=== PATIENT | female | born 1935 | race Caucasian/White ===

== ENCOUNTER 2020-11-30 09:29 | Day surgery (SDC) | payer MEDICARE ==
[2020-11-29 08:54] VITALS: BMI 16.7
[2020-11-30] MEDS ORDERED: Bupivacaine 0.25% HCL 30 ML VIAL ONE (12:06)
[2020-11-30] MEDS ORDERED: Bupivacaine PF 0.5% 30 ML VIAL ONE (12:06)
[2020-11-30] MEDS ORDERED: EPINEPHrine 1 MG/ML AMP ONE (12:06)
[2020-11-30] MEDS ORDERED: Fentanyl 100 MCG/2 ML VIAL ONE (12:14)
[2020-11-30] MEDS ORDERED: Ondansetron PF 4 MG/2 ML Vial ONE (12:24)
[2020-11-30] MEDS ORDERED: Dexamethasone 20 MG/5 ML VIAL ONE (12:24)
[2020-11-30] MEDS ORDERED: Lidocaine 1% PF 5 ML VIAL ONE (12:24)
[2020-11-30] MEDS ORDERED: PROPOFOL 200 MG/20 ML VIAL ONE (12:24)
[2020-11-30] MEDS ORDERED: ePHEDrine Sulfate 50 MG/10 ML VIAL ONE (12:24)
== END 2020-11-30 14:57 | disposition home or self-care (01) ==
LOC: SDC 09:29
PROVIDERS: ATTEND Surgery
PROC: 0YU50JZ Supplement Right Inguinal Region with Synthetic Substitute, Open Approach (ICD-10-PCS; principal; 2020-11-30)
DX: K40.90 Unilateral inguinal hernia, without obstruction or gangrene, not specified as recurrent (principal); I10 Essential (primary) hypertension; E78.5 Hyperlipidemia, unspecified; E03.9 Hypothyroidism, unspecified; J45.909 Unspecified asthma, uncomplicated; Z79.899 Other long term (current) drug therapy; Z87.891 Personal history of nicotine dependence
CPT/HCPCS: A4306; C1781; J0171; J0690; J1100; J2405; J2704; J3010; S0020

== ENCOUNTER 2022-05-02 11:44 | Inpatient (IN) | payer OTHER, MEDICARE ==
[2022-05-02] MEDS ORDERED: Morphine 4 MG/ML VIAL ONE (14:01)
[2022-05-02] MEDS ORDERED: Ondansetron PF 4 MG/2 ML Vial ONE (14:02)
[2022-05-02 14:31] LABS: #Eosinphils 0.1 thou/uL (0.0-0.7); #Lymphocytes 0.6 thou/uL (1.20-3.40); #Monocytes 0.4 thou/uL (0.11-0.59); #Neutrophils 7.6 thou/uL (1.40-6.50); %Basophils 0.3 % (0.0-1.0); %Eosinophils 0.8 % (0.0-10.0); %Lymphocytes 6.9 % (21.0-51.0); %Monocytes 4.9 % (0.0-10.0); %Neutrophils 87.2 % (42.0-75.0); Hemoglobin 14.2 g/dL (12.0-16.0); Mean Corpuscular Hemoglobin 31.3 pg (27.0-31.0); Mean Corpuscular Volume 94.9 fL (78.0-98.0); Mean Platelet Volume 7.8 fL (7.4-10.4); Platelet Count 215 thou/uL (130-400); RBC Distribution Width 12.7 % (11.5-14.5); Red Blood Cell (RBC) Count 4.52 mill/uL (4.20-5.40); White Blood Cell (WBC) Count 8.7 thou/uL (4.8-10.8)
[2022-05-02 14:46] LABS: INR-International Normal Ratio 0.9; PTT 29.5 sec (22.9-36.1); Prothrombin Time 12.7 sec (12.0-14.7)
[2022-05-02 14:51] LABS: ALT (SGPT) 24 U/L (8-55); AST (SGOT) 20 U/L (5-34); Albumin 3.6 g/dL (3.4-4.8); Alkaline Phosphatase 90 U/L (40-110); Anion Gap 16 mmol/L (10-20); BUN (Urea Nitrogen) 23 mg/dL (9.8-20.1); Bilirubin, Total 0.9 mg/dL (0.2-1.2); Calc. Creatinine Clearance 0 mL/min (70-130); Calcium 8.8 mg/dL (7.8-10.44); Carbon Dioxide 21 mmol/L (23-31); Chloride 104 mmol/L (98-107); Estimated GFR 59; Globulin 2.9 g/dL (2.4-3.5); Glucose 99 mg/dL (83-110); Potassium 4.2 mmol/L (3.5-5.1); Protein, Total 6.5 g/dL (5.8-8.1); Sodium 137 mmol/L (136-145)
[2022-05-02] MEDS ORDERED: Fentanyl 100 MCG/2 ML VIAL ONE (15:02)
[2022-05-02] MEDS ORDERED: TETANUS, DIPHTHERIA TOX,ADULT (TDVAX) 0.5 ML VIAL IM ONE (15:33)
[2022-05-02] MEDS ORDERED: Promethazine HCl 25 MG/ML VIAL IM PRN (15:34)
[2022-05-02] MEDS ORDERED: Ondansetron PF 4 MG/2 ML Vial IVP PRN (15:34)
[2022-05-02] MEDS ORDERED: Morphine 2 MG/ML VIAL SLOW IVP PRN (15:34)
[2022-05-02 17:39] VITALS: BMI 21.2
[2022-05-02] MEDS: Sodium Chloride 0.9% 1,000 ML IV SCH (18:14)
[2022-05-02] MEDS: Acetaminophen/Codeine 30-300mg Tablet PO SCH (18:14)
[2022-05-02] MEDS: Cyclobenzaprine 10 MG TAB PO PRN (18:23)
[2022-05-02] MEDS ORDERED: Famotidine 20 MG TAB PO SCH (21:00)
[2022-05-02] MEDS: Ibuprofen 600 MG TAB PO SCH (21:18)
[2022-05-02] MEDS: Senokot S 8.6-50 MG TAB PO SCH (21:18)
[2022-05-03] MEDS: Sodium Chloride 0.9% 1,000 ML IV SCH ×2 (00:45→09:11)
[2022-05-03] MEDS: Acetaminophen/Codeine 30-300mg Tablet PO SCH ×4 (00:46→17:05)
[2022-05-03] MEDS: Ibuprofen 600 MG TAB PO SCH ×3 (05:13→20:17)
[2022-05-03] MEDS: Levothyroxine Sodium 50 MCG TAB PO SCH (05:14)
[2022-05-03] MEDS: Cyclobenzaprine 10 MG TAB PO PRN ×2 (05:14→17:08)
[2022-05-03 05:40] LABS: #Basophils 0.1 thou/uL (0.0-0.2); #Eosinphils 0.2 thou/uL (0.0-0.7); #Lymphocytes 0.9 thou/uL (1.20-3.40); #Monocytes 0.6 thou/uL (0.11-0.59); #Neutrophils 4.9 thou/uL (1.40-6.50); %Basophils 0.8 % (0.0-1.0); %Lymphocytes 13.3 % (21.0-51.0); %Monocytes 8.5 % (0.0-10.0); %Neutrophils 74.4 % (42.0-75.0); Hemoglobin 13.5 g/dL (12.0-16.0); Mean Corpuscular HGB CONC 33.1 g/dL (32.0-36.0); Mean Corpuscular Hemoglobin 31.5 pg (27.0-31.0); Mean Corpuscular Volume 95.2 fL (78.0-98.0); Mean Platelet Volume 7.9 fL (7.4-10.4); Platelet Count 202 thou/uL (130-400); RBC Distribution Width 12.7 % (11.5-14.5); Red Blood Cell (RBC) Count 4.27 mill/uL (4.20-5.40); White Blood Cell (WBC) Count 6.6 thou/uL (4.8-10.8)
[2022-05-03 05:59] LABS: Anion Gap 13 mmol/L (10-20); BUN (Urea Nitrogen) 20 mg/dL (9.8-20.1); Calc. Creatinine Clearance 44 mL/min (70-130); Calcium 8.3 mg/dL (7.8-10.44); Carbon Dioxide 22 mmol/L (23-31); Chloride 106 mmol/L (98-107); Estimated GFR 71; Glucose 85 mg/dL (83-110); Potassium 3.5 mmol/L (3.5-5.1); Sodium 137 mmol/L (136-145)
[2022-05-03] MEDS ORDERED: Levothyroxine Sodium 75 MCG TAB PO SCH (09:00)
[2022-05-03] MEDS: Polyethylene Glycol 3350 17 GM Packet PO SCH (09:11)
[2022-05-03] MEDS: Famotidine 20 MG TAB PO SCH (09:11)
[2022-05-03] MEDS: Senokot S 8.6-50 MG TAB PO SCH ×2 (09:11→20:17)
[2022-05-03] MEDS ORDERED: Acetaminophen/Codeine 30-300mg Tablet PO PRN (09:34)
[2022-05-04] MEDS: Acetaminophen/Codeine 30-300mg Tablet PO SCH ×4 (00:05→16:26)
[2022-05-04] MEDS: Ibuprofen 600 MG TAB PO SCH ×2 (05:45→15:07)
[2022-05-04] MEDS: Levothyroxine Sodium 50 MCG TAB PO SCH (05:45)
[2022-05-04 06:34] LABS: #Eosinphils 0.5 thou/uL (0.0-0.7); %Eosinophils 6.4 % (0.0-10.0); Hemoglobin 13.2 g/dL (12.0-16.0); Mean Platelet Volume 7.8 fL (7.4-10.4)
[2022-05-04 06:58] LABS: #Monocytes 0.6 thou/uL (0.11-0.59); #Neutrophils 5.2 thou/uL (1.40-6.50); %Basophils 0.4 % (0.0-1.0); %Lymphocytes 13.5 % (21.0-51.0); %Monocytes 8.1 % (0.0-10.0); %Neutrophils 71.5 % (42.0-75.0); Anion Gap 10 mmol/L (10-20); BUN (Urea Nitrogen) 18 mg/dL (9.8-20.1); Calc. Creatinine Clearance 42 mL/min (70-130); Calcium 8.3 mg/dL (7.8-10.44); Carbon Dioxide 26 mmol/L (23-31); Chloride 106 mmol/L (98-107); Estimated GFR 68; Glucose 80 mg/dL (83-110); Mean Corpuscular Hemoglobin 30.7 pg (27.0-31.0); Mean Corpuscular Volume 95.7 fL (78.0-98.0); Phosphorus 2.5 mg/dL (2.3-4.7); Platelet Count 182 thou/uL (130-400); Potassium 3.5 mmol/L (3.5-5.1); RBC Distribution Width 12.8 % (11.5-14.5); Red Blood Cell (RBC) Count 4.31 mill/uL (4.20-5.40); Sodium 138 mmol/L (136-145); White Blood Cell (WBC) Count 7.3 thou/uL (4.8-10.8)
[2022-05-04] MEDS ORDERED: PHOS-NAK 1 PKT PACK PO SCH (08:30)
[2022-05-04] MEDS: Famotidine 20 MG TAB PO SCH (09:58)
[2022-05-04] MEDS: Enoxaparin Sodium 40 MG/0.4 ML SYRINGE SC SCH (10:00)
[2022-05-04] MEDS: Polyethylene Glycol 3350 17 GM Packet PO SCH (10:24)
[2022-05-04] MEDS: Senokot S 8.6-50 MG TAB PO SCH ×2 (10:24→20:35)
[2022-05-04] MEDS ORDERED: hydrALAZINE 20 MG/ML VIAL SLOW IVP PRN (14:36)
[2022-05-04] MEDS ORDERED: Ibuprofen 200 MG TAB PO SCH (15:15)
[2022-05-04] MEDS: Ibuprofen 200 MG TAB PO SCH (20:35)
[2022-05-05] MEDS: Acetaminophen/Codeine 30-300mg Tablet PO SCH ×5 (00:42→23:19)
[2022-05-05] MEDS: Ibuprofen 200 MG TAB PO SCH ×3 (06:29→21:10)
[2022-05-05] MEDS: Levothyroxine Sodium 50 MCG TAB PO SCH (06:29)
[2022-05-05] MEDS: Polyethylene Glycol 3350 17 GM Packet PO SCH (10:02)
[2022-05-05] MEDS: Famotidine 20 MG TAB PO SCH (10:06)
[2022-05-05] MEDS: Senokot S 8.6-50 MG TAB PO SCH ×2 (10:06→21:10)
[2022-05-05] MEDS: Enoxaparin Sodium 40 MG/0.4 ML SYRINGE SC SCH (10:06)
[2022-05-06] MEDS: Levothyroxine Sodium 50 MCG TAB PO SCH (05:36)
[2022-05-06] MEDS: Acetaminophen/Codeine 30-300mg Tablet PO SCH ×4 (05:36→23:34)
[2022-05-06] MEDS: Ibuprofen 200 MG TAB PO SCH ×3 (05:37→20:33)
[2022-05-06] MEDS: Polyethylene Glycol 3350 17 GM Packet PO SCH (08:21)
[2022-05-06] MEDS: Enoxaparin Sodium 40 MG/0.4 ML SYRINGE SC SCH (08:21)
[2022-05-06] MEDS: Senokot S 8.6-50 MG TAB PO SCH ×2 (08:21→19:33)
[2022-05-06] MEDS: Famotidine 20 MG TAB PO SCH (08:21)
[2022-05-07] MEDS: Acetaminophen/Codeine 30-300mg Tablet PO SCH ×4 (05:03→23:22)
[2022-05-07] MEDS: Ibuprofen 200 MG TAB PO SCH (05:03)
[2022-05-07] MEDS: Levothyroxine Sodium 50 MCG TAB PO SCH (05:04)
[2022-05-07] MEDS: Enoxaparin Sodium 40 MG/0.4 ML SYRINGE SC SCH (09:09)
[2022-05-07] MEDS: Famotidine 20 MG TAB PO SCH (09:09)
[2022-05-07] MEDS: Polyethylene Glycol 3350 17 GM Packet PO SCH (09:10)
[2022-05-07] MEDS: Senokot S 8.6-50 MG TAB PO SCH ×2 (09:10→19:41)
[2022-05-07] MEDS ORDERED: Ibuprofen 200 MG TAB PO PRN (09:30)
[2022-05-08] MEDS: Acetaminophen/Codeine 30-300mg Tablet PO SCH ×3 (05:04→11:29)
[2022-05-08] MEDS: Levothyroxine Sodium 50 MCG TAB PO SCH (05:33)
[2022-05-08] MEDS: Polyethylene Glycol 3350 17 GM Packet PO SCH (08:36)
[2022-05-08] MEDS: Enoxaparin Sodium 40 MG/0.4 ML SYRINGE SC SCH (08:36)
[2022-05-08] MEDS: Famotidine 20 MG TAB PO SCH (08:36)
[2022-05-08] MEDS: Senokot S 8.6-50 MG TAB PO SCH (08:37)
[2022-05-08 12:55] VITALS: BP 146/71; TEMP 97.9
== END 2022-05-08 15:04 | DRG 563 ==
LOC: ERS 11:44 → SURG A 15:36
PROVIDERS: ADMIT Surgery; ATTEND Surgery
DX: S52.331A Displaced oblique fracture of shaft of right radius, initial encounter for closed fracture (principal); Z20.822 Contact with and (suspected) exposure to COVID-19; W01.0XXA Fall on same level from slipping, tripping and stumbling without subsequent striking against object, initial encounter; S70.12XA Contusion of left thigh, initial encounter; I10 Essential (primary) hypertension; E03.9 Hypothyroidism, unspecified; Z79.890 Hormone replacement therapy; Z79.899 Other long term (current) drug therapy
CPT/HCPCS: 29125; 36415; 80048; 80053; 83735; 84100; 85025; 85610; 85730; 86850; 86900; 86901; 96374; 96375; G0390; J1650; J2270; J2405; J3010; J7050

== ENCOUNTER 2024-06-29 15:43 | Outpatient (CLI) | payer MEDICARE | END 2024-06-29 15:44 | disposition home or self-care (01) | LOC: SCSRAD 15:43 | PROVIDERS: ATTEND Family Medicine | DX: R06.00 Dyspnea, unspecified (principal); R29.898 Other symptoms and signs involving the musculoskeletal system; M16.12 Unilateral primary osteoarthritis, left hip; J98.4 Other disorders of lung | CPT/HCPCS: 71046 ==